=== PATIENT | female | born 1950 | race Caucasian/White ===

== ENCOUNTER → 2021-09-01 09:11 | Outpatient (BNVA) | payer MEDICARE, SELFPAY | PROVIDERS: PCP Internal Medicine; Visit Provider Nurse Practitioner Family | DX: G47.33 Obstructive sleep apnea (adult) (pediatric) (principal); G47.10 Hypersomnia, unspecified; R25.1 Tremor, unspecified; R20.2 Paresthesia of skin | CPT/HCPCS: 99212 ==

== ENCOUNTER → 2021-12-26 15:06 | Outpatient (BNVA) | payer MEDICARE, SELFPAY | PROVIDERS: PCP Internal Medicine; Visit Provider Nurse Practitioner Family | DX: G47.33 Obstructive sleep apnea (adult) (pediatric) (principal); G47.10 Hypersomnia, unspecified | CPT/HCPCS: 99212 ==

== ENCOUNTER → 2022-08-14 12:47 | Outpatient (BNVA) | payer MEDICARE, SELFPAY | PROVIDERS: PCP Internal Medicine; Visit Provider Nurse Practitioner Family | DX: G47.10 Hypersomnia, unspecified (principal); Z82.49 Family history of ischemic heart disease and other diseases of the circulatory system | CPT/HCPCS: 99212 ==

== ENCOUNTER → 2023-02-17 09:35 | Outpatient (BNVA) | payer MEDICARE, SELFPAY | PROVIDERS: PCP Internal Medicine; Visit Provider Nurse Practitioner Family | DX: G47.10 Hypersomnia, unspecified (principal); G47.33 Obstructive sleep apnea (adult) (pediatric); Z82.49 Family history of ischemic heart disease and other diseases of the circulatory system | CPT/HCPCS: 99212 ==

== ENCOUNTER 2023-08-23 09:19 | Outpatient (AMB) | payer MEDICARE, SELFPAY ==
[2023-08-23 09:24] VITALS: BP 110/70; PULSE 89; O2SAT 99; BMI 26.1
--- NOTE | 2023-08-23 09:24 | MHC.OFFVIS ---
Intake Vital Signs 08/23/23 09:24 Height 5 ft 5 in Weight 157 lb BMI 26.1 BP 110/70 Blood Pressure Location Rt brachial Position Sitting Pulse 89 Pulse Source Pulse Oximeter Pulse Oximetry (%) 99 Oxygen Delivery Method Room Air Intake Visit Reasons: 6m follow up - Confirmed Intake Note: Patient presents for 6 month follow up. not much change, just medication concerns Allergies amoxicillin Allergy (Intermediate, Verified 08/23/23 09:27) unknown levofloxacin [From Levaquin] Allergy (Intermediate, Verified 08/23/23 09:27) unknown Medication List - Last Reconciled 08/23/23 by BEN Navarrete calcium citrate-vitamin D3 (Citracal Regular) orally daily; cholecalciferol (vitamin D3) 50 mcg PO DAILY dexmethylphenidate 5 mg PO DAILY ferrous sulfate (FeroSul) 325 mg PO DAILY PRN methylphenidate HCl (Ritalin) 10 mg PO TID PRN 30 days modafinil 200 mg PO QAM 90 days [Vitamin A every other day] zoster vaccine live (PF) (Zostavax (PF)) mL subcut HPI HPI Comments History of Present Illness Details 73-yr-old female presents for f/u visit. Pt denies any significant interval medical changes. Pt is using Modafinil 200mg qam, may skip a day if she is going to be home. Has been using less Methylphenidate since she was started on Focalin for ADHD. However, is using methylphenidate more often as there are Focalin shortages. Does use the Methylphenidate- for later day activities, driving, definitely skiing. The modafinil does help with her staying awake. However, the focalin and methylphenidate- helps more w/ focus. She can be prone to accidents- especially if distracted. Tremor varies- some days writing is more shaky- not sure why. Hands and toes- can still spasm. Does take Magnesium- which helps her leg cramps. February 2023- Brain MRA was normal [facility] Surgical History Status post surgical removal of neoplasm of skin H/O knee surgery Family History Father Heart disease Mother Brain aneurysm Sister Brain aneurysm Sister Brain aneurysm Brother Brain aneurysm Social History Alcohol intake: never Patient Tobacco Use Status: Former Tobacco user Review of Systems Const All systems reviewed & are unremarkable except as noted in HPI and below Physical Exam Vital Signs: Last Vital Signs Pulse 89 08/23/23 09:24 BP 110/70 08/23/23 09:24 Pulse Ox 99 08/23/23 09:24 Oxygen Delivery Method Room Air 08/23/23 09:24 BMI result Body Mass Index 26.1 Const General: cooperative and no acute distress Orientation/consciousness: patient oriented x3 HEENT Head: Yes normocephalic Resp Effort & Inspection: normal respiratory effort and able to speak in complete sentences Neuro General: patient oriented x3, gait normal and CN's II-XI intact bilaterally Cognition (Neuro): normal cognition Motor exam (neuro): 5/5 motor strength present throughout Psych Appearance: grossly normal Mental Status: mental status grossly normal Speech and movement: Normal speech and movement present Affect: normal affect Attitude: cooperative Thought process: Normal thought process present Thought content: Normal thought content present Insight: Good insight present (Psych) Judgement: Good judgement present (Psych) Assessment & Plan Assessment & Plan (1) Hypersomnia: Comment: ? narcolepsy Code(s): G47.10 - Hypersomnia, unspecified (2) Tremor: Comment: likely age related or exagerated physiologic tremor Code(s): R25.1 - Tremor, unspecified (3) Paresthesia of both feet: Comment: burning pain Code(s): R20.2 - Paresthesia of skin Plan Reviewed brain MRA w/o to assess for any intracranial aneurysms. Pt requests to be done at [facility]. Continue Modafinil 200mg qam. Continue prn Ritalin- for skiing, driving longer distances, etc. May continue ADHD tx- pt to update us w/ any changes. Continue increased physical activity/exercise. Monitor tremor. f/u in 6 months or sooner prn. Coding Level of Care Code Est Pt Level 4 (25444) Diagnoses Hypersomnia G47.10 Tremor R25.1 Paresthesia of both feet R20.2
== END 2023-08-23 10:16 | disposition home or self-care (01) ==
PROVIDERS: PCP Internal Medicine; Visit Provider Nurse Practitioner Family
DX: G47.10 Hypersomnia, unspecified (principal); R25.1 Tremor, unspecified; R20.2 Paresthesia of skin
CPT/HCPCS: 99214

== ENCOUNTER → 2023-08-23 09:19 | Outpatient (BNVA) | payer MEDICARE, SELFPAY | PROVIDERS: PCP Internal Medicine; Visit Provider Nurse Practitioner Family | DX: G47.10 Hypersomnia, unspecified (principal); R25.1 Tremor, unspecified; R20.2 Paresthesia of skin | CPT/HCPCS: 99212 ==

== ENCOUNTER 2024-03-21 08:46 | Outpatient (AMB) | payer OTHER, SELFPAY ==
[2024-03-21 08:49] VITALS: BP 140/82; PULSE 85; O2SAT 100; BMI 26.0
--- NOTE | 2024-03-21 08:49 | MHC.OFFVIS ---
Vital Signs 03/21/24 08:49 Height 5 ft 5 in Weight 156 lb BMI 26.0 BP 140/82 H Blood Pressure Location Rt brachial Position Sitting Pulse 85 Pulse Source Pulse Oximeter Pulse Oximetry (%) 100 Oxygen Delivery Method Room Air Intake Visit Reasons: 6M follow up Conf Intake Note: Patient presents for 6 month follow up. Patient still having shales and memory issues. Allergies amoxicillin Allergy (Intermediate, Verified 03/21/24 08:52) unknown levofloxacin [From Levaquin] Allergy (Intermediate, Verified 03/21/24 08:52) unknown Medication List - Last Reconciled 03/21/24 by BEN Navarrete calcium citrate-vitamin D3 (Citracal Regular) orally daily; cholecalciferol (vitamin D3) 50 mcg PO DAILY dexmethylphenidate 5 mg PO DAILY ferrous sulfate (FeroSul) 325 mg PO DAILY PRN methylphenidate HCl (Ritalin) 10 mg PO TID PRN 30 days modafinil 200 mg PO QAM 90 days [Vitamin A every other day] zoster vaccine live (PF) (Zostavax (PF)) mL subcut HPI Comments Details: 74-yr-old female presents for f/u visit. Pt denies any significant interval medical changes. Pt is using Modafinil 200mg qam which helps with staying awake. Uses the Methylphenidate- for later day activities, driving, definitely skiing. She can be prone to accidents- especially if distracted. She is noticing some more cognitive lapses- may forget something or call something the wrong name or recalling a more distant person's name. She feels that her ability to retrieve information is stuck sometimes. She is also noticing this more so in her partner who is 81. Denies repeating herself. Using Focalin for cognition. She has had neuro-psych eval in the past- to eval post-concussive cognitive changes- states she was told there were deficits but pt presnts well d/t baseline high IQ. Tremor is more noticeable- makes it more difficult to write. States it is harder to paint a straight line. Hands and toes- can still spasm. Does take Magnesium- which helps her leg cramps. She continues to paint, exercise, and socialize regularly. February 2023- Brain MRA was normal [facility] Surgical History Status post surgical removal of neoplasm of skin H/O knee surgery Family History Father Heart disease Mother Brain aneurysm Sister Brain aneurysm Sister Brain aneurysm Brother Brain aneurysm Social History Alcohol intake: never Patient Tobacco Use Status: Former Tobacco user Physical Exam Vital Signs: Last Vital Signs Pulse 85 03/21/24 08:49 BP 140/82 H 03/21/24 08:49 Pulse Ox 100 03/21/24 08:49 Oxygen Delivery Method Room Air 03/21/24 08:49 BMI result Body Mass Index 26.0 Const General: cooperative and no acute distress Orientation/consciousness: patient oriented x3 Resp Effort & Inspection: normal respiratory effort and able to speak in complete sentences Neuro General: patient oriented x3 Cranial nerves: Yes CN's II-XII intact bilaterally Cognition (Neuro): normal cognition Psych Appearance: grossly normal Mental Status: mental status grossly normal Speech and movement: Normal speech and movement present Affect: normal affect Attitude: cooperative Assessment & Plan Assessment & Plan (1) Hypersomnia: Comment: ? narcolepsy Code(s): G47.10 - Hypersomnia, unspecified Category: Medical (2) Tremor: Comment: likely age related or exagerated physiologic tremor Code(s): R25.1 - Tremor, unspecified Category: Medical (3) Cognitive changes: Comment: ? attention deficit s/s, ? MCI, ? residual psotconcussive symptoms, lower suspicion for neurodegenrative process Code(s): R41.89 - Other symptoms and signs involving cognitive functions and awareness Category: Medical Plan Continue Modafinil 200mg qam. Continue prn Ritalin- for skiing, driving longer distances, etc. May continue ADHD tx- pt to update us w/ any changes. Continue increased physical activity/exercise. Monitor tremor. Monitor cognition. Continue regular socialization. Future considerations-f/u neuropsych evaluation. f/u in 6 months or sooner prn. Medications: Refilled modafinil 200 mg PO QAM 90 days 90 tabs 1RF Coding Level of Care Code Est Pt Level 4 (50997) Diagnoses Hypersomnia G47.10 Tremor R25.1 Cognitive changes R41.89
== END 2024-03-21 09:43 | disposition home or self-care (01) ==
PROVIDERS: PCP Internal Medicine; Visit Provider Nurse Practitioner Family
DX: G47.10 Hypersomnia, unspecified (principal); R25.1 Tremor, unspecified; R41.89 Other symptoms and signs involving cognitive functions and awareness
CPT/HCPCS: 99214

== ENCOUNTER → 2024-03-21 08:46 | Outpatient (BNVA) | payer OTHER, MEDICARE, SELFPAY | PROVIDERS: PCP Internal Medicine; Visit Provider Nurse Practitioner Family ==

== ENCOUNTER 2024-10-12 10:51 | Outpatient (AMB) | payer BC, SELFPAY ==
--- NOTE | 2024-10-12 11:03 | MHC.OFFVIS ---
Vital Signs 10/12/24 11:04 Height 5 ft 5 in Weight 134 lb BMI 22.3 BP 110/70 Blood Pressure Location Rt brachial Position Sitting Pulse 79 Pulse Source Pulse Oximeter Pulse Oximetry (%) 99 Oxygen Delivery Method Room Air Intake Visit Reasons: Follow Up Intake Note: Patient presents follow up Hypersomnia/tremor Felling Machine Operator Required: No Accompanied by: Self / Same As Patient Allergies amoxicillin Allergy (Intermediate, Verified 03/21/24 08:52) unknown levofloxacin [From Levaquin] Allergy (Intermediate, Verified 03/21/24 08:52) unknown Medication List - Last Reconciled 10/12/24 by BEN Navarrete calcium citrate-vitamin D3 (Citracal Regular) orally daily; cholecalciferol (vitamin D3) 50 mcg PO DAILY dexmethylphenidate 5 mg PO DAILY ferrous sulfate (FeroSul) 325 mg PO DAILY PRN magnesium 250 mg PO DAILY melatonin 5 mg PO BEDTIME PRN methylphenidate HCl (Ritalin) 10 mg PO TID PRN 30 days modafinil 200 mg PO QAM 90 days [Vitamin A every other day] zoster vaccine live (PF) (Zostavax (PF)) mL subcut HPI Comments Details: The patient is a 74-year-old female presenting for follow-up of hypersomnia, cognitive changes, and tremor. Patient reports interval history of elevated hemoglobin A1c and musculoskeletal pain. Initially flagged in May following a primary care consultation, her elevated glycemic levels remain persistent despite weight loss through dietary changes and exercise, suspecting poor sleep as a contributor. 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 Since, she has suffered from disrupted sleep,, owing to musculoskeletal pain . and also ruminating thoughts. She notes that her later day methylphenidate dose can also interfere with sleep initiation. She has been trying to intentionally maintain a more consistent sleep schedule in routine. She tried cyclobenzaprine, however it ?knocked me out? in cause residual daytime grogginess. Was using OTC ibuprofen initially with a muscle strain, which helps some. She does use ice sometimes, which she finds more helpful than heat. She is currently doing PT for this, though does still have limited left cervical range of motion. She continues to use modafinil 100 mg daily in the morning, however may hold the dose if she does not have a lot of activities that day. She continues to use methylphenidate IR 10mg p.r.n. late day activities, such as driving and skiing. She continues to use Focalin for cognition. She continues to exercise regularly. She engages in regular social and cognitively stimulating activities. Previous HPI 03/21/2024: Pt denies any significant interval medical changes. Pt is using Modafinil 200mg qam which helps with staying awake. Uses the Methylphenidate- for later day activities, driving, definitely skiing. She can be prone to accidents- especially if distracted. She is noticing some more cognitive lapses- may forget something or call something the wrong name or recalling a more distant person's name. She feels that her ability to retrieve information is stuck sometimes. She is also noticing this more so in her partner who is 81. Denies repeating herself. Using Focalin for cognition. She has had neuro-psych eval in the past- to eval post-concussive cognitive changes- states she was told there were deficits but pt presnts well d/t baseline high IQ. Tremor is more noticeable- makes it more difficult to write. States it is harder to paint a straight line. Hands and toes- can still spasm. Does take Magnesium- which helps her leg cramps. She continues to paint, exercise, and socialize regularly. February 2023- Brain MRA was normal [facility] Surgical History Status post surgical removal of neoplasm of skin H/O knee surgery Family History Father Heart disease Mother Brain aneurysm Sister Brain aneurysm Sister Brain aneurysm Brother Brain aneurysm Social History Alcohol intake: never Patient Tobacco Use Status: Former Tobacco user Physical Exam Vital Signs: Last Vital Signs Pulse 79 10/12/24 11:04 BP 110/70 10/12/24 11:04 Pulse Ox 99 10/12/24 11:04 Oxygen Delivery Method Room Air 10/12/24 11:04 BMI result Body Mass Index 22.3 Const General: cooperative and no acute distress Orientation/consciousness: patient oriented x3 Resp Effort & Inspection: normal respiratory effort and able to speak in complete sentences Neuro Other: Limited cervical range of motion, more so to the left. Left upper trap tightness and inflammation without erythema. Muscle strength 5/5. No focal neurological deficits General: patient oriented x3 Cranial nerves: Yes CN's II-XII intact bilaterally Cognition (Neuro): normal cognition Psych Appearance: grossly normal Mental Status: mental status grossly normal Speech and movement: Normal speech and movement present Affect: normal affect Attitude: cooperative Assessment & Plan Assessment & Plan (1) Hypersomnia: Comment: ? narcolepsy Code(s): G47.10 - Hypersomnia, unspecified Category: Medical (2) Tremor: Comment: likely age related or exagerated physiologic tremor Code(s): R25.1 - Tremor, unspecified Category: Medical (3) Cognitive changes: Comment: ? attention deficit s/s, ? MCI, ? residual psotconcussive symptoms, lower suspicion for neurodegenrative process Code(s): R41.89 - Other symptoms and signs involving cognitive functions and awareness Category: Medical Plan Discussion NotesI discussed the current status of the patient?s hemoglobin A1c and the influence of sleep on glycemic control. I highlighted the importance of consistent sleep timing and routines, especially when considering the patient's ongoing insomnia. We explored dietary adjustments and the benefits of consulting a head of acquisitions for tailored guidance. Regarding her musculoskeletal strain, options for managing discomfort were proposed, including topical treatments and muscle relaxants as needed. We reviewed medication management, addressing concerns regarding ADHD medications' interaction with her evening responsibilities and potential impacts on her sleep. Risks and benefits, including side effects and activity-related challenges, were outlined, emphasizing the importance of maintaining control over her hypersomnia and glycemic control. Patient Instructions - Continue with regular physical therapy sessions for musculoskeletal strain. - Use ice packs or topical analgesic gels for pain relief. - may try taking cyclobenzaprine half tab at 20:00, to see if this improves tolerance. - Consider taking melatonin in the evening to aid sleep. - Try to go to bed and wake up at the same time every day. - Consult with a head of acquisitions for dietary management to support glycemic control. - Continue Modafinil 200mg qam. - Continue prn Ritalin- for skiing, driving longer distances, etc. - May continue ADHD tx- update us w/ any changes in tx plan. - Continue increased physical activity/exercise. - Monitor tremor. - Monitor cognition. - Continue regular socialization. - Seek immediate care if sleep issues or musculoskeletal pain significantly worsen. - Future considerations-f/u neuropsych evaluation. Patient was informed and verbally consented to the use of an ambient scribe for clinic note documentation during this visit. f/u in 6 months or sooner prn. Medications: Refilled methylphenidate HCl (Ritalin) 10 mg PO TID 30 days PRN 90 tabs 0RF narcolepsy G47.10 - Hypersomnia, unspecified Coding Level of Care Code Est Pt Level 4 (58087) Diagnoses Hypersomnia G47.10 Tremor R25.1 Cognitive changes R41.89
[2024-10-12 11:04] VITALS: BP 110/70; PULSE 79; O2SAT 99; BMI 22.3
--- OUTSIDE RECORDS SUMMARY | 2024-10-12 12:54 | XMS_ITS | Encounter Summary ---
Author Organization [facility] and [facility] Address [address] [place] [phone] Care Team Providers Care Report Developer Name Role Phone Unavailable Primary Care Provider Unavailabl e Encounter Details Date Type Department Care Team (Late st Contact Info) Description 10/07/2011 Scanned Document Neurology [address] [place] [phone] External, Provider Social History Tobacco Use Types Packs/Day Years Used Date Smoking Tobacco: Former Alcohol Use Standard Drinks/Week Comments Not Asked 0 (1 standard drink = 0.6 oz pur e alcohol) Comments Unknown Sex and Gender Information Value Date Recorded Sex Assigned at Not on file Legal Sex Female 9:34 AM EST Gender Identity Not on file Sexual Orientation Not on file documented as of this encounter Plan of Treatment Not on file documented as of this encounter Visit Diagnoses Not on filedocumented in this encounter
--- OUTSIDE RECORDS SUMMARY | 2024-10-12 12:54 | XMS_ITS | Clinical Summary ---
Author Organization [facility] Address [address] [place] [phone] Care Team Providers Care Technical Systems Architect Name Role Phone Unavailable Primary Care Provider Unavailabl e Allergies Active Allergy Reactions Criticality Noted Date Comments Isopropyl Alcohol Rash Low 10/07/2011 Amoxicillin 10/07/2011 Levofloxacin 10/07/2011 Sulfa (Sulfonamide Antibiotics) 09/17 Medications methylphenidate (RITALIN) 10 MG tablet Take 10 mg by mouth 2 (two) times daily. Active modafinil (PROVIGIL) 100 MG tablet Take 100 mg by mouth daily. 1 to 2 times a day depending on bedtime. Active cyanocobalamin, vitamin B-12, (VITAMIN B-12) 2,[address] under the tongue daily. Active Active Problems No known active problems Social History Tobacco Use Types Packs/Day Years Used Date Smoking Tobacco: Former Alcohol Use Standard Drinks/Week Comments Not Asked 0 (1 standard drink = 0.6 oz pur e alcohol) Comments Unknown Sex and Gender Information Value Date Recorded Sex Assigned at Not on file Legal Sex Female 9:34 AM EST Gender Identity Not on file Sexual Orientation Not on file Last Filed Vital Signs Vital Sign Reading Time Taken Comments Blood Pressure 130/73 02/09/2012 4:01 PM EDT Pulse 62 02/09/2012 4:01 PM EDT Temperature - - Respiratory Rate - - Oxygen Saturation - - Inhaled Oxygen Concentration - - Weight 60.3 kg (133 lb) 02/09/2012 4:01 PM EDT Height 166.4 cm (5' 5.5 ) 02/09/2012 4:01 PM EDT Body Mass Index 21.8 02/09/2012 4:01 PM EDT Plan of Treatment Health Maintenance Due Date Last Done Comments HIV screening 1962 Hepatitis C screening 1967 Tetanus adult (Td q 10,TDAP once) 1969 Lipid disorder screening 1989 Colon cancer screening, Colonoscopy 1994 Diabetes screening 1994 Shingles vaccine (Shingrix) (1 of 2 - Shingrix (RZV) 2 Dose Standard Series) 1999 Osteoporosis screening (bone density) 2014 Pneumococcal Vaccine (50+ years) (1 of 1 - PCV) 2014 RSV Discussion (1 - 1-dose 75+ series) 01/20/2024 Influenza vaccine 03/16/2024 Covid-19 vaccine series ( - 2023-25 season) 2024 Cervical cancer screening Discontinued 2007, 09/05/1997, 06/27/1996, Additional history exists Breast cancer screening Discontinued Meningococcal Vaccine Aged Out No hayden dwight eligible based on patient's age to complete this topic Procedures Procedure Name Priority Date/Time Associated Diagnosis Comments CYTOLOGY MANAGER AUTO CASES ([facility]) Routine 10/24/2007 1:00 AM EDT from Last 3 Months or Most Recently Relevant to Health Maintenance Results * Cytology french polisher cases ([facility]) (10/24/2007 1:00 AM EDT) [place] [address] Lab Number ??[id number] Cytology Report IMPORTED CASE FROM LEGACY SYSTEM Patient Name: LESLIE NUÑEZ Date of : 1950 Med. Rec. #: [id number] Gender: F Date Taken: 10/24/2007 00:00 Date Received: 10/25/2007 10:54 Date Reported:11/02/2007 00:00 Submitting Clinician: KVNG THOMPSON MD Copy-To Clinician: KVNG THOMPSON MD Source of Specimen: THIN PREP PAP Final Cytologic Diagnosis CYTOLOGICAL FINDINGS: ADEQUACY OF SPECIMEN: SATISFACTORY FOR EVALUATION. No endocervical/transf ormation zone component identified. GENERAL CATEGORIZATION: EPITHELIAL CELL ABNORMALITY: Low grade squamous intraepithelial lesion. ( PANTERA I ) Screened by Pathology [facility] Laboratory Services, [facility] [place], [place]. COMMENTS: None. Signed RICCARDO ALEXIS 11/02/07 [id number] Electronically Signed Out ? 11/02/2007 ? ALEXISRICCARDO The above electronic signature indicates that either the pathologist or the binder stripper machine has personally performed a microscopic examination and has based the diagnosis on the available microscopic material. Clinical History: CLINICAL HISTORY/DIAGNOSIS: ?? Normal exam PERTINENT DATA: LAST MENSTRUAL PERIOD: NOT STATED # OF DAYS IN CYCLE: NOT STATED HORMONE THERAPY: NOT STATED IRREG. OR ABN. BLEEDING: NOT STATED : NOT STATED : NOT STATED PRIOR MANAGER AUTO SURGERY: NOT STATED RX. TREATMENT: NOT STATED Card Case Comment: ENGRAVER ORNAMENTAL DESIGN COMMENTS: ?? SAT EC- LSIL ??LVG/CMB MANAGER AUTO FINAL DIAGNOSIS ?? SAT EC- LSIL CODES: [id number] - TP MANAGER AUTO LSIL MARKERS: TUMOR BOARD Fee Code(s): [facility] Final Diagnosis CYTOLOGICAL FINDINGS: ADEQUACY OF SPECIMEN: SATISFACTORY FOR EVALUATION. No endocervical/transf ormation zone component identified. GENERAL CATEGORIZATION: EPITHELIAL CELL ABNORMALITY: Low grade squamous intraepithelial lesion. ( PANTERA I ) Screened by [facility], [facility] [place], [place]. COMMENTS: None. Signed RICACRDO ALEXIS 11/02/07 1648 [facility] Clinical History CLINICAL HISTORY/DIAGNOSIS: ?? Normal exam PERTINENT DATA: LAST MENSTRUAL PERIOD: NOT STATED # OF DAYS IN CYCLE: NOT STATED HORMONE THERAPY: NOT STATED IRREG. OR ABN. BLEEDING: NOT STATED : NOT STATED : NOT STATED PRIOR MANAGER AUTO SURGERY: NOT STATED RX. TREATMENT: NOT STATED [facility] 10/24/2007 1:00 AM EDT 10/25/2007 11:54 AM EDT us Provider Not In System PATHOLOGY/CYTOLOGY ORDERA BLES Final Result [facility] [address] [place], [place] [id number] from Last 3 Months or Most Recently Relevant to Health Maintenance
--- OUTSIDE RECORDS SUMMARY | 2024-10-12 12:54 | XMS_ITS | Encounter Summary ---
Author Organization [facility] and [facility] Address [address] [place] [phone] Care Team Providers Care Research Environmental Engineer Name Role Phone Unavailable Primary Care Provider Unavailabl e Encounter Details Date Type Department Care Team ([facility] st Contact Info) Description 07/29/2011 Scanned Document Neurology [address] [place], [place] [phone] External, Provider Social History Tobacco Use Types Packs/Day Years Used Date Smoking Tobacco: Never Assessed Comments Unknown Sex and Gender Information Value Date Recorded Sex Assigned at Not on file Legal Sex Female 9:34 AM EST Gender Identity Not on file Sexual Orientation Not on file documented as of this encounter Plan of Treatment Not on file documented as of this encounter Visit Diagnoses Not on filedocumented in this encounter
--- OUTSIDE RECORDS SUMMARY | 2024-10-12 12:54 | XMS_ITS | Encounter Summary ---
Author Organization [facility] and [facility] Address [address] [place] [phone] Care Team Providers Care Scholastic Aptitude Test Grader Name Role Phone Unavailable Primary Care Provider Unavailabl e Encounter Details Date Type Department Care Team ([facility] st Contact Info) Description 07/29/2011 Scanned Document Neurology [address] [place], [place] [id number] External, Provider Social History Tobacco Use Types [...]
--- OUTSIDE RECORDS SUMMARY | 2024-10-12 12:54 | XMS_ITS | Patient Health Record ---
Author Organization [facility] Address [address] [place] [address] Care Team Providers Care Director Of Assisted Living Name Role Phone STACYALFREDO HAAS Unavailable [phone] Reason For Referral No Information Plan Of Treatment No Information Insurance Providers Payer Name Payer Address Payer Phone Subscriber Number Group Number Insured Name Patient Relationship to Insured Coverage Start Date Coverage End Date MEDICARE/ [facility] [address] [place] [address] [id number] LESLIE VIEIRA Self - patient is the insured [facility] [facility] [address] [facility] [place] [address] [id number] LESLIE VIEIRA Self - patient is the insured 5
== END 2024-10-12 12:04 | disposition home or self-care (01) ==
PROVIDERS: PCP Internal Medicine; Visit Provider Nurse Practitioner Family
DX: G47.10 Hypersomnia, unspecified (principal); R25.1 Tremor, unspecified; R41.89 Other symptoms and signs involving cognitive functions and awareness
CPT/HCPCS: 99214

== ENCOUNTER 2025-04-18 11:21 | Outpatient (AMB) | payer BC, SELFPAY ==
--- NOTE | 2025-04-18 11:29 | A.OFFVIS_ITS ---
Vital Signs 04/18/25 11:30 Height 5 ft 5 in Weight 130 lb BMI 21.6 BP 120/78 Blood Pressure Location Lt brachial Position Sitting Pulse 78 Pulse Source Pulse Oximeter Pulse Oximetry (%) 99 Oxygen Delivery Method Room Air Intake Visit Reasons: 6 mnts f/u appt Intake Note: Patient presents follow up Hypersomnia/tremor Radiation Therapy Technician Required: No Accompanied by: Self / Same As Patient Allergies amoxicillin Allergy (Intermediate, Verified 04/18/25 11:31) unknown levofloxacin (From Levaquin) Allergy (Intermediate, Verified 04/18/25 11:31) unknown Medication List - Last Reconciled 04/18/25 by BEN Navarrete calcium citrate-vitamin D3 (Citracal Regular) orally daily; cholecalciferol (vitamin D3) 50 mcg PO DAILY dexmethylphenidate 5 mg PO DAILY ferrous sulfate (FeroSul) 325 mg PO DAILY PRN magnesium 250 mg PO DAILY melatonin 5 mg PO BEDTIME PRN methylphenidate HCl (Ritalin) 10 mg PO TID PRN 30 days modafinil 200 mg PO QAM 90 days omega-3 fatty acids (Fish Oil) PO DAILY rosuvastatin 20 mg PO DAILY [Vitamin A every other day] zoster vaccine live (PF) (Zostavax (PF)) mL subcut HPI Comments Details: 75-year-old female presenting for follow-up of hypersomnia, cognitive changes, and tremor. She has been doing PT for her knees, as she was told she is in need of a double knee replacement. They have also been helping her with improving her gait. She reports her daytime sleepiness is well-controlled while she is taking her medication regimen. Uses the ritalin for driving, needing to take it more often, as she is driving the children more places in the evening or she has an art class or andrei. She continues to use modafinil 100 mg daily in the morning, however may hold the dose if she does not have a lot of activities that day. She continues to use methylphenidate IR 10mg p.r.n. late day activities, such as driving and skiing. She continues to use Focalin for cognition. She continues to exercise regularly. She engages in regular social and cognitively stimulating activiti es. 03/21/2024, HPI:: Pt denies any significant interval medical changes. Pt is using Modafinil 200mg qam which helps with staying awake. Uses the Methylphenidate- for later day activities, driving, definitely skiing. She can be prone to accidents- especially if distracted. She is noticing some more cognitive lapses- may forget something or call something the wrong name or recalling a more distant person's name. She feels that her ability to retrieve information is stuck sometimes. She is also noticing this more so in her partner who is 81. Denies repeating herself. Using Focalin for cognition. She has had neuro-psych eval in the past- to eval post-concussive cognitive changes- states she was told there were deficits but pt presnts well d/t baseline high IQ. Tremor is more noticeable- makes it more difficult to write. States it is harder to paint a straight line. Hands and toes- can still spasm. Does take Magnesium- which helps her leg cramps. She continues to paint, exercise, and socialize regularly. February 2023- Brain MRA was normal [facility] Surgical History Status post surgical removal of neoplasm of skin H/O knee surgery Family History Father Heart disease Mother Brain aneurysm Sister Brain aneurysm Sister Brain aneurysm Brother Brain aneurysm Social History Alcohol intake: never Patient Tobacco Use Status: Former Tobacco user Physical Exam Vital Signs: Last Vital Signs Pulse 78 04/18/25 11:30 BP 120/78 04/18/25 11:30 Pulse Ox 99 04/18/25 11:30 Oxygen Delivery Method Room Air 04/18/25 11:30 BMI result Body Mass Index 21.6 Const General: cooperative and no acute distress Orientation/consciousness: patient oriented x3 Resp Effort & Inspection: normal respiratory effort and able to speak in complete sentences Neuro Other: Limited cervical range of motion, more so to the left. Left upper trap tightness and inflammation without erythema. Muscle strength 5/5. No focal neurological deficits General: patient oriented x3 Cranial nerves: Yes CN's II-XII intact bilaterally Cognition (Neuro): normal cognition Psych Appearance: grossly normal Mental Status: mental status grossly normal Speech and movement: Normal speech and movement present Affect: normal affect Attitude: cooperative Assessment & Plan Assessment & Plan (1) Hypersomnia: Comment: ? narcolepsy Code(s): G47.10 - Hypersomnia, unspecified Category: Medical (2) Tremor: Comment: likely age related or exagerated physiologic tremor Code(s): R25.1 - Tremor, unspecified Category: Medical (3) Cognitive changes: Comment: ? attention deficit s/s, ? MCI, ? residual psotconcussive symptoms, lower suspicion for neurodegenrative process Code(s): R41.89 - Other symptoms and signs involving cognitive functions and awareness Category: Medical Plan - Continue Modafinil 200mg qam. - Continue prn Ritalin 10 mg tab 1-3 tabs per day- for skiing, driving longer distances, nighttime driving etc. - May continue ADHD tx- update us w/ any changes in tx plan. - Continue increased physical activity/exercise. - Monitor tremor. - Monitor cognition. - Continue regular socialization. - Seek immediate care if sleep issues or musculoskeletal pain significantly worsen. - Future considerations-f/u neuropsych evaluation. f/u in 6 months or sooner prn. Medications: Refilled modafinil 200 mg PO QAM 90 tabs 1RF 90 days methylphenidate HCl (Ritalin) 10 mg PO TID PRN 90 tabs 0RF narcolepsy 30 days G47.10 - Hypersomnia, unspecified Coding Level of Care Code Est Pt Level 4 (60472) Diagnoses Hypersomnia G47.10 Tremor R25.1 Cognitive changes R41.89
[2025-04-18 11:30] VITALS: BP 120/78; PULSE 78; O2SAT 99; BMI 21.6
== END 2025-04-18 14:00 | disposition home or self-care (01) ==
LOC: HO.HSMS 11:22
PROVIDERS: PCP Internal Medicine; Visit Provider Nurse Practitioner Family
DX: G47.10 Hypersomnia, unspecified (principal); R25.1 Tremor, unspecified; R41.89 Other symptoms and signs involving cognitive functions and awareness
CPT/HCPCS: 99214